=== PATIENT | male | born 1990 | race African-American/Black ===

== ENCOUNTER 2022-01-23 10:50 | Emergency (ER) | payer OTHER ==
[~2022-01-23] VITALS: Ht 154.9 cm; Wt 91.4 kg
[2022-01-23] MEDS ORDERED: ACETAMINOPHEN 325 MG TAB ONE (11:40)
[2022-01-23] MEDS ORDERED: IBUPROFEN 600 MG TAB ONE (11:40)
[2022-01-23] MEDS ORDERED: IBUPROFEN 600 MG TAB PO STA (11:44)
[2022-01-23] MEDS ORDERED: ACETAMINOPHEN 325 MG TAB PO ONE (11:45)
[2022-01-23] MEDS ORDERED: AMOXICILLIN500 MG PO (11:57)
[2022-01-23] MEDS ORDERED: CETIRIZINE HCL10 MG PO (11:58)
[2022-01-23] MEDS ORDERED: MUCINEX DM ER1 EACH PO (11:59)
== END 2022-01-23 12:11 | disposition home or self-care (01) ==
LOC: FSED 10:57
DX: J02.0 Streptococcal pharyngitis (principal); Q90.9 Down syndrome, unspecified; R05.9 Cough, unspecified
CPT/HCPCS: 83518; 87400; 99283